=== PATIENT | male | born 2000 | race African-American/Black ===

== ENCOUNTER 2022-08-10 12:46 | Emergency (ER) | payer SELFPAY ==
[~2022-08-10] VITALS: Ht 165.1 cm; Wt 112.0 kg
--- NOTE | 2022-08-10 13:15 | NUR ---
covid and flu swabbed, given to lab at this time
[2022-08-10] MEDS ORDERED: ONDANSETRON 4 MG ODT PO ONE (14:25)
[2022-08-10] MEDS ORDERED: IBUPROFEN 600 MG TAB PO ONE (14:25)
[2022-08-10] MEDS ORDERED: LOPERAMIDE 2 MG CAP PO ONE (14:25)
[2022-08-10 15:56] LABS: ANION GAP 14.9 (8-16); CARBON DIOXIDE 25.5 mmol/L (21-32); CREATININE 1.4 mg/dL (0.6-1.3); POTASSIUM 3.4 mmol/L (3.5-5.1)
[2022-08-10] MEDS ORDERED: IMO2 PO (16:21)
[2022-08-10] MEDS ORDERED: PROM118S5 PO (16:21)
[2022-08-10] MEDS ORDERED: ONDA-188 PO (16:21)
--- NOTE | 2022-08-10 16:37 | NUR ---
Patient discharged with v/s stable. Written and verbal after care instructions given and explained. Patient alert, oriented and verbalized understanding of instructions. Ambulatory with steady gait. All questions addressed prior to discharge. ID band removed. Patient advised to follow up with PMD. Rx of LOPERAMIDE, ZOFRAN ODT, PROMETHAZINE given. Patient educated on indication of medication including possible reaction and side effects. Opportunity to ask questions provided and answered.
== END 2022-08-10 16:37 | disposition home or self-care (01) ==
LOC: MED 12:46
DX: B34.9 Viral infection, unspecified (principal); Z20.822 Contact with and (suspected) exposure to COVID-19; E87.1 Hypo-osmolality and hyponatremia; E86.0 Dehydration
CPT/HCPCS: 36415; 71045; 80048; 87426; 87804; 99284; Q0162